=== PATIENT | female | born 1980 | race Caucasian/White ===

== ENCOUNTER 2017-01-14 18:45 | Emergency (ER) | payer OTHER ==
[~2017-01-14] VITALS: Ht 165.1 cm; Wt 105.1 kg
[~2017-01-14 18:45] MED LIST: ACET325T26 PO; FERR325T20 PO; FOLI0.8T2 PO; IBUP-1 PO; LABE200T3 PO; OXYC-302 PO; PREN1TAB60 PO; SENN1TAB5 PO; SIME80TA16 PO
[2017-01-14 18:46] VITALS: BP 160/95
[2017-01-14] MEDS ORDERED: HYDROmorphone 1 MG/ML, 1ML ONE (19:05)
[2017-01-14] MEDS ORDERED: HYDROmorphone 1 MG/ML, 1ML IM ONE (20:00)
== END 2017-01-14 20:33 | disposition home or self-care (01) ==
LOC: ED 20:10
DX: S42.201A Unspecified fracture of upper end of right humerus, initial encounter for closed fracture (principal); Z88.0 Allergy status to penicillin; Z90.710 Acquired absence of both cervix and uterus; Z88.1 Allergy status to other antibiotic agents; W19.XXXA Unspecified fall, initial encounter; Y93.89 Activity, other specified; Y92.39 Other specified sports and athletic area as the place of occurrence of the external cause; Y99.9 Unspecified external cause status
CPT/HCPCS: 73060; 96372; 99284; J1170